=== PATIENT | male | born 1960 | race Caucasian/White ===

== ENCOUNTER 2024-12-30 10:45 | Inpatient (IN) | payer BC, OTHER ==
[~2024-12-30] VITALS: Ht 177.8 cm; Wt 97.5 kg
[~2024-12-30 10:45] MED LIST: AMLO1TAB24 PO; ATOR1TAB21 PO; ERGO80006 PO; FARX1TAB5 PO; LISI10TA22 PO; METF500T13 PO; METO1TAB32 PO; VENL75CA47 PO
[2024-12-30] MEDS: LR 1,000 ML IV SCH (11:50)
[2024-12-30] MEDS ORDERED: HOME MED LIST COMPLETE! XX SCH (11:55)
[2024-12-30] MEDS ORDERED: ROCURONIUM BROMIDE 50MG/5ML VIAL As Ordered ONE (14:06)
[2024-12-30] MEDS ORDERED: ONDANSETRON 4MG/2ML VIAL As Ordered ONE (14:06)
[2024-12-30] MEDS ORDERED: LIDOCAINE 2% 100 MG/5 ML SDV (FOR ANES.) As Ordered ONE (14:07)
[2024-12-30] MEDS ORDERED: dexAMETHasone 4 MG/ML 1 ML VIAL As Ordered ONE (14:07)
[2024-12-30] MEDS ORDERED: MIDAZOLAM INJ 2 MG/2 ML VIAL As Ordered ONE (14:31)
[2024-12-30] MEDS ORDERED: HYDROmorphone HCL 2 MG/ML 1 ML VIAL As Ordered ONE (14:32)
[2024-12-30] MEDS: ceFAZolin SOD 2 GM IV ONCE IV ONE (14:38)
[2024-12-30] MEDS ORDERED: GLUCOSE 4 GM CHEW PO PRN (14:40)
[2024-12-30] MEDS ORDERED: DEXTROSE 50% 50 ML SYRINGE IV PRN (14:40)
[2024-12-30] MEDS ORDERED: GLUCAGON INJ 1 MG VIAL SC PRN (14:40)
[2024-12-30] MEDS: HEPARIN SOD 5000 UNITS/ML 1 ML VIAL/SYRINGE SQ ONE (14:51)
[2024-12-30] MEDS ORDERED: ACETAMINOPHEN 1000MG/100ML IV BAG As Ordered ONE (15:01)
[2024-12-30] MEDS ORDERED: hydrALAZINE 20 MG/ML 1 ML VIAL As Ordered ONE (15:34)
[2024-12-30] MEDS: INSULIN LISPRO (NovoLOG) PER UNIT SC SCH ×2 (17:30→20:00)
[2024-12-30] MEDS ORDERED: KETOROLAC 30 MG/ML 1 ML VIAL As Ordered ONE (18:11)
[2024-12-30] MEDS ORDERED: SUGAMMADEX SODIUM 500 MG/5 ML VIAL As Ordered ONE (18:19)
[2024-12-30] MEDS: LIDOCAINE 1% SDV 30 ML VIAL As Ordered ONE (18:30)
[2024-12-30] MEDS ORDERED: MORPHINE 2 MG/ML 1 ML VIAL IV PRN (18:30)
[2024-12-30] MEDS ORDERED: HYDROMORPHONE HCL 0.5 MG/0.5 ML SYRINGE IV PRN (18:30)
[2024-12-30] MEDS: INSULIN LISPRO (NovoLOG) PER UNIT SC PRN (19:22)
[2024-12-30 19:41] LABS: PLATELET COUNT, AUTOMATED 237 10^3/uL (150-450)
[2024-12-30] MEDS: NS (Normal Saline) 0.9% 1,000 ML IV SCH (19:56)
[2024-12-30 20:00] VITALS: BP 114/74; TEMP 97.4; O2SAT 90
[2024-12-30 20:08] LABS: CALCIUM LEVEL 9.1 MG/DL (8.3-10.6); CARBON DIOXIDE LEVEL 21.0 MMOL/L (20-31); CHLORIDE LEVEL 103.0 MMOL/L (98-107); CREATININE FOR GFR 1.65 MG/DL (0.70-1.30); GLOMERULAR FILTRATION RATE 46.1 (>49); POTASSIUM SERUM 4.6 MMOL/L (3.5-5.1); SODIUM LEVEL 139.0 MMOL/L (136-145)
[2024-12-30 20:46] VITALS: BP 102/58; TEMP 97.5; O2SAT 91
[2024-12-30 21:00] VITALS: BP 112/72; TEMP 98; O2SAT 92
[2024-12-30] MEDS: DOCUSATE SODIUM 100 MG CAPSULE PO SCH (21:00)
[2024-12-30] MEDS: VENLAFAXINE **XR** 75MG CAPSULE PO SCH (21:00)
[2024-12-30] MEDS: METOPROLOL SUCC. 25 MG *XL* TAB PO SCH (21:00)
[2024-12-30] MEDS: ATORVASTATIN 20 MG TAB PO SCH (21:00)
[2024-12-30 22:00] VITALS: BP 117/74; TEMP 98.6; O2SAT 92
[2024-12-30 23:00] VITALS: BP 118/66; TEMP 97.8; O2SAT 88
[2024-12-31] VITALS (7 sets, daily range): BP systolic 91–129; BP diastolic 62–86; TEMP 97.4–99.5; O2SAT 90–95
[2024-12-31] MEDS: ceFAZolin SOD 1 GM in DEXTROSE 5% (D5W) ADV/MINI-BAG 50 ML IV SCH (00:05)
[2024-12-31] MEDS: HEPARIN SOD 5000 UNITS/ML 1 ML VIAL/SYRINGE SC SCH (00:05)
[2024-12-31] MEDS: PERCOCET 5MG/325MG TAB PO PRN ×2 (03:25→20:49)
[2024-12-31] MEDS: ONDANSETRON 4MG/2ML VIAL IV PRN (05:47)
[2024-12-31 07:03] LABS: CALCIUM LEVEL 8.7 MG/DL (8.3-10.6); CARBON DIOXIDE LEVEL 24.0 MMOL/L (20-31); CHLORIDE LEVEL 101.0 MMOL/L (98-107); CREATININE FOR GFR 1.85 MG/DL (0.70-1.30); GLOMERULAR FILTRATION RATE 40.2 (>49); POTASSIUM SERUM 5.3 MMOL/L (3.5-5.1); SODIUM LEVEL 138.0 MMOL/L (136-145)
[2024-12-31 07:12] LABS: PLATELET COUNT, AUTOMATED 284 10^3/uL (150-450)
[2024-12-31] MEDS: amLODIPine 5 MG TAB PO SCH (08:32)
[2024-12-31 12:20] LABS: PLATELET COUNT, AUTOMATED 250 10^3/uL (150-450)
[2024-12-31 12:48] LABS: CALCIUM LEVEL 8.1 MG/DL (8.3-10.6); CARBON DIOXIDE LEVEL 24.0 MMOL/L (20-31); CHLORIDE LEVEL 100.0 MMOL/L (98-107); CREATININE FOR GFR 1.92 MG/DL (0.70-1.30); GLOMERULAR FILTRATION RATE 38.4 (>49); POTASSIUM SERUM 4.7 MMOL/L (3.5-5.1); SODIUM LEVEL 135.0 MMOL/L (136-145)
[2024-12-31] MEDS: NS (Normal Saline) 0.9% 1,000 ML IV SCH (15:02)
[2024-12-31] MEDS: ACETAMINOPHEN 325 MG TAB PO PRN (18:10)
[2025-01-01] VITALS (7 sets, daily range): BP systolic 111–138; BP diastolic 72–88; TEMP 97.4–99.8; O2SAT 90–97
[2025-01-01 06:33] LABS: PLATELET COUNT, AUTOMATED 222 10^3/uL (150-450)
[2025-01-01 06:55] LABS: CALCIUM LEVEL 8.1 MG/DL (8.3-10.6); CARBON DIOXIDE LEVEL 26.0 MMOL/L (20-31); CHLORIDE LEVEL 105.0 MMOL/L (98-107); CREATININE FOR GFR 1.73 MG/DL (0.70-1.30); GLOMERULAR FILTRATION RATE 43.5 (>49); POTASSIUM SERUM 4.4 MMOL/L (3.5-5.1); SODIUM LEVEL 140.0 MMOL/L (136-145)
[2025-01-01] MEDS ORDERED: COLA100C5 PO (08:05)
[2025-01-01] MEDS ORDERED: PERCOCET PO (08:05)
[2025-01-01] MEDS ORDERED: CIPR-249 PO (08:05)
[2025-01-01] MEDS: FUROSEMIDE 20 MG/2 ML VIAL IV ONE (09:39)
[2025-01-01 12:31] LABS: PLATELET COUNT, AUTOMATED 226 10^3/uL (150-450)
[2025-01-01 13:01] LABS: CALCIUM LEVEL 8.0 MG/DL (8.3-10.6); CARBON DIOXIDE LEVEL 26.0 MMOL/L (20-31); CHLORIDE LEVEL 103.0 MMOL/L (98-107); CREATININE FOR GFR 1.65 MG/DL (0.70-1.30); GLOMERULAR FILTRATION RATE 46.1 (>49); POTASSIUM SERUM 4.2 MMOL/L (3.5-5.1); SODIUM LEVEL 137.0 MMOL/L (136-145)
[2025-01-01] MEDS: CIPROFLOXACIN 500 MG TABLET PO SCH (16:59)
[2025-01-01] MEDS: MIRALAX *UNIT DOSE* 17 GM PACKET PO PRN (20:25)
[2025-01-01] MEDS: SENNA 8.6 MG TAB PO PRN (20:25)
[2025-01-01] MEDS: NS (Normal Saline) 0.9% 1,000 ML IV SCH (21:26)
[2025-01-02] VITALS (7 sets, daily range): BP systolic 126–164; BP diastolic 76–88; TEMP 97.7–99.4; O2SAT 94–97
[2025-01-02 06:33] LABS: PLATELET COUNT, AUTOMATED 250 10^3/uL (150-450)
[2025-01-02 06:52] LABS: CALCIUM LEVEL 8.5 MG/DL (8.3-10.6); CARBON DIOXIDE LEVEL 26.0 MMOL/L (20-31); CHLORIDE LEVEL 101.0 MMOL/L (98-107); CREATININE FOR GFR 1.59 MG/DL (0.70-1.30); GLOMERULAR FILTRATION RATE 48.2 (>49); POTASSIUM SERUM 4.6 MMOL/L (3.5-5.1); SODIUM LEVEL 138.0 MMOL/L (136-145)
[2025-01-02] MEDS: BISACODYL 10 MG SUPP PR ONE (10:39)
[2025-01-03 03:21] VITALS: BP 144/90; TEMP 98.4; O2SAT 97
[2025-01-03 06:05] LABS: PLATELET COUNT, AUTOMATED 244 10^3/uL (150-450)
[2025-01-03 06:40] LABS: CALCIUM LEVEL 7.8 MG/DL (8.3-10.6); CARBON DIOXIDE LEVEL 25.0 MMOL/L (20-31); CHLORIDE LEVEL 104.0 MMOL/L (98-107); CREATININE FOR GFR 1.34 MG/DL (0.70-1.30); GLOMERULAR FILTRATION RATE 59.2 (>49); POTASSIUM SERUM 4.0 MMOL/L (3.5-5.1); SODIUM LEVEL 139.0 MMOL/L (136-145)
[2025-01-03 08:00] VITALS: BP 154/94; TEMP 98.2; O2SAT 96
[2025-01-03 12:00] VITALS: BP 153/86; TEMP 98.6; O2SAT 95
[2025-01-03 16:00] VITALS: BP 133/87; TEMP 98.6; O2SAT 97
[2025-01-03 20:53] VITALS: BP 148/93; TEMP 98.5; O2SAT 96
[2025-01-04 00:36] VITALS: BP 131/86; TEMP 98.1; O2SAT 95
[2025-01-04 04:01] VITALS: BP 138/82; TEMP 98.1; O2SAT 95
[2025-01-04 06:03] LABS: PLATELET COUNT, AUTOMATED 248 10^3/uL (150-450)
[2025-01-04 06:30] LABS: CALCIUM LEVEL 8.0 MG/DL (8.3-10.6); CARBON DIOXIDE LEVEL 27.0 MMOL/L (20-31); CHLORIDE LEVEL 104.0 MMOL/L (98-107); CREATININE FOR GFR 1.41 MG/DL (0.70-1.30); GLOMERULAR FILTRATION RATE 55.7 (>49); POTASSIUM SERUM 4.0 MMOL/L (3.5-5.1); SODIUM LEVEL 139.0 MMOL/L (136-145)
[2025-01-04 08:00] VITALS: BP 163/90; TEMP 98.3; O2SAT 98
[2025-01-04 12:00] VITALS: BP 145/85; TEMP 98.7; O2SAT 96
[2025-01-04 16:00] VITALS: BP 148/83; TEMP 98.7; O2SAT 97
[2025-01-04 20:33] VITALS: BP 155/87; TEMP 97.9; O2SAT 96
[2025-01-04] MEDS: BISACODYL 10 MG SUPP PR SCH (20:34)
[2025-01-05 00:45] VITALS: BP 144/86; TEMP 97.6; O2SAT 96
[2025-01-05 04:57] VITALS: BP 150/89; TEMP 97.5; O2SAT 96
[2025-01-05 07:02] LABS: PLATELET COUNT, AUTOMATED 292 10^3/uL (150-450)
[2025-01-05 07:29] LABS: CALCIUM LEVEL 8.2 MG/DL (8.3-10.6); CARBON DIOXIDE LEVEL 28.0 MMOL/L (20-31); CHLORIDE LEVEL 104.0 MMOL/L (98-107); CREATININE FOR GFR 1.36 MG/DL (0.70-1.30); GLOMERULAR FILTRATION RATE 58.1 (>49); POTASSIUM SERUM 4.4 MMOL/L (3.5-5.1); SODIUM LEVEL 141.0 MMOL/L (136-145)
[2025-01-05 08:00] VITALS: BP 156/87; TEMP 98.4; O2SAT 97
[2025-01-05 09:12] VITALS: BP 150/89
[2025-01-05 12:00] VITALS: BP 130/80; TEMP 98.1; O2SAT 97
== END 2025-01-05 15:12 | disposition home or self-care (01) | DRG 482 ==
LOC: M SDC 10:45 → M MSPAV 19:45 → M SDC 12-31 15:13 → UNDODISIN 01-01 14:02
PROVIDERS: ADMIT Urology; ATTEND Urology
PROC: 8E0W4CZ Robotic Assisted Procedure of Trunk Region, Percutaneous Endoscopic Approach (ICD-10-PCS; 2024-12-30)
PROC: 07BC4ZZ Excision of Pelvis Lymphatic, Percutaneous Endoscopic Approach (ICD-10-PCS; 2024-12-30)
PROC: 0VB07ZZ Excision of Prostate, Via Natural or Artificial Opening (ICD-10-PCS; principal; 2024-12-30 12:25)
DX: C61 Malignant neoplasm of prostate (principal); K91.89 Other postprocedural complications and disorders of digestive system; N18.9 Chronic kidney disease, unspecified